=== PATIENT | male | born 1975 | race Caucasian/White ===

== ENCOUNTER 2017-11-14 12:50 | Emergency (ER) | payer OTHER ==
[~2017-11-14] VITALS: Ht 182.9 cm; Wt 103.8 kg
[~2017-11-14 12:50] MED LIST: LANTUS 10100 UNITS/ SC; MOTRIN800 MG PO; PERCOCET 5/31 TABLET PO; PRILOSEC20 MG PO
[2017-11-14] MEDS ORDERED: TRULICITY1.5 MG/0.5 SC (13:07)
[2017-11-14] MEDS ORDERED: NOVOLOG PE100 UNITS/ SC (13:08)
[2017-11-14] MEDS ORDERED: ACTOS15 MG PO (13:09)
[2017-11-14 13:19] LABS: SOURCE URINE
[2017-11-14 13:24] LABS: APPEARANCE CLEAR ((CLEAR)); BILIRUBIN NEGATIVE; BLOOD SMALL; COLOR YELLOW ((YELLOW)); GLUCOSE (STRIP) >=500; KETONES NEGATIVE; LEUKOCYTES NEGATIVE; NITRITE NEGATIVE; PROTEIN (STRIP) NEGATIVE; SPECIFIC GRAVITY 1.037 (1.000-1.030); UROBILINOGEN 0.2 MG/DL (0.2-1.0)
[2017-11-14 13:29] LABS: HEMATOCRIT 45.2 % (38.0-50.0); HEMOGLOBIN 16.2 G/DL (12.5-16.6); MCH 31.2 PG (29.0-34.0); MCHC 35.8 G/DL (30.0-36.0); MCV 87.1 FL (86-99); PLATELET COUNT 148 K/uL (156-360); RBC DIS.WIDTH-CV 11.7 % (11.8-14.6); RBC DIS.WIDTH-SD 37.2 % (39-53); RED BLOOD COUNT 5.19 M/uL (4.00-5.50); WHITE BLOOD COUNT 6.2 K/uL (4.1-10.2)
[2017-11-14 13:33] LABS: BACTERIA NONE SEEN /HPF; EPITHELIAL CELLS RARE /HPF; MUCUS TRACE /LPF; WHITE BLOOD CELLS 0-5 /HPF (0-5)
[2017-11-14 13:39] LABS: CHLORIDE 103 mEq/L (99-109); POTASSIUM 4.1 mEq/L (3.7-5.4); SODIUM 138 mEq/L (136-147)
[2017-11-14 13:40] LABS: GLUCOSE 251 mg/dL (70-99)
[2017-11-14 13:44] LABS: CREATININE 0.9 mg/dL (0.6-1.3); GFR ESTIMATE (CALCULATED) > 59 mL/min/ (58.99-99999)
[2017-11-14 13:45] LABS: UREA NITROGEN (BUN) 10 mg/dL (9-23)
[2017-11-14] MEDS ORDERED: PERCOCET 5/31 TABLET PO (15:03)
[2017-11-14 16:42] VITALS: BP 119/78
[2017-11-16 12:34] LABS: CHLAMYDIA TRACHOMATIS NEGATIVE; NEISSERIA GONORRHOEAE NEGATIVE
== END 2017-11-14 16:45 | disposition home or self-care (01) ==
LOC: EME 12:50
PROVIDERS: Physician Assistant
DX: R10.32 Left lower quadrant pain (principal); N50.812 Left testicular pain; E11.9 Type 2 diabetes mellitus without complications; Z87.442 Personal history of urinary calculi; Z90.49 Acquired absence of other specified parts of digestive tract; F17.200 Nicotine dependence, unspecified, uncomplicated; Z79.4 Long term (current) use of insulin; Z88.6 Allergy status to analgesic agent
CPT/HCPCS: 74176; 76870; 80048; 81003; 85027; 87491; 87591; 93975; 99281; 99284; J1885